=== PATIENT | male | born 1995 | race Caucasian/White ===

== ENCOUNTER 2017-04-21 18:17 | Emergency (ER) | payer OTHER ==
[~2017-04-21] VITALS: Ht 177.8 cm; Wt 63.0 kg
[~2017-04-21 18:17] MED LIST: HYDR-4225 PO
[2017-04-21 18:20] VITALS: BP 144/79
[2017-04-21] MEDS ORDERED: MIRT-1 PO (18:23)
--- NOTE | 2017-04-21 18:29 | ER Report ---
History and Physical Time Seen By MD: 18:23 Hx. of Stated Complaint: PT C/O SORE THROAT AND COLD SYMPTOMS FOR TWO DAYS. HPI/ROS CHIEF COMPLAINT: Cold symptoms and sore throat 2 days HISTORY OF PRESENT ILLNESS: 21-year-old male presents ambulatory to the ER complaining of cold symptoms for 2 days. He notes a sore throat, increased pain with swallowing. He was exposed to his classmates who has strep. He notes no headache, photophobia or stiff neck. He notes an occasional dry cough. He's had no nausea or vomiting. Patient denies high fevers to suggest influenza. He denies body aches. REVIEW OF SYSTEMS: Respiratory: No cough, no dyspnea. Cardiovascular: No chest pain, no palpitations. Gastrointestinal: No vomiting, no abdominal pain. Musculoskeletal: No back pain. Allergies: Coded Allergies: No Known Drug Allergies (Unverified , 09/10/16) Home Meds Active Scripts Amoxicillin (AMOXICILLIN) 875 Mg Tablet, 1 TAB PO Q12H for infection, #14 TAB Prov:PETR GOMES DO 04/21/17 Reported Medications Mirtazapine (REMERON) 15 Mg Tablet, 7.5 MG PO QHS 04/21/17 Discontinued Scripts Hydroxyzine Hcl (HYDROXYZINE HCL) 25 Mg Tablet, 25 MG PO QHS for Sleep, #10 TAB 0 Refills Prov:SHARAN AU MD 09/11/16 Reviewed Nurses Notes: Yes Old Medical Records Reviewed: Yes Hx Substance Use Disorder: Yes (marijauna) Hx Alcohol Use: Yes (daily recently) Constitutional Vital Sign - Last 24 Hours 04/21/17 18:20 Temp 98.1 Pulse 63 Resp 18 B/P (MAP) 144/79 Pulse Ox 96 Physical Exam Vital signs stable, afebrile, pulse ox normal. General Appearance: The patient is alert, has no immediate need for airway protection and no current signs of toxicity. HEENT: Pupils equal and round no injection. TMs normal, oropharynx moderate erythema, tonsillar hypertrophy and exudate noted Respiratory: Chest is non tender, lungs are clear to auscultation. Cardiac: regular rate and rhythm Gastrointestinal: Abdomen is soft and non tender, no masses, bowel sounds normal. No splenomegaly Musculoskeletal: Neck: Neck is supple and non tender. Tender lymphadenopathy Extremities have full range of motion and are non tender. Skin: No rashes or lesions. DIFFERENTIAL DIAGNOSIS: After history and physical exam differential diagnosis was considered for strep pharyngitis, mononucleosis, sinus infection, viral syndrome, otitis media Medical Decision Making Data Points Laboratory Hematology Test 04/21/17 00:00 Group A Streptococcus Screen Negative (NEGATIVE) Chemistry Test 04/21/17 00:00 Group A Streptococcus Screen Negative (NEGATIVE) Microbiology Microbiology Date/Time Source Procedure Growth Status 04/21/17 00:00 Throat Group A Streptococcus Screen ([facility]) - Preliminary NORMAL RESPIRATORY SCOTT PRESENT, CUL... Resulted ED Course/Re-evaluation ED Course Patient was admitted to an examination room. H&P was done. The dental diagnoses was considered. On clinical examination. Patient has exudative tonsillitis of his oropharynx. A rapid strep was performed which is negative. Cultures pending. Due to patient's strep exposure. He'll be treated with amoxicillin. He is advised ibuprofen 600 mg 3 times daily for pain relief with food. Patient advised to follow-up with primary care or [facility] if unimproved in 3-5 days. Decision to Disposition Date: Apr 21, 2017 Decision to Disposition Time: 18:44 Depart Departure Latest Vital Signs Vital Signs Date Time Temp Pulse Resp B/P (MAP) Pulse Ox O2 Delivery O2 Flow Rate FiO2 04/21/17 18:20 98.1 63 18 144/79 96 Impression: Primary Impression: Strep pharyngitis Condition: Improved Disposition: HOME OR SELF-CARE Referrals: JARETT FARR (PCP) New Scripts Amoxicillin (AMOXICILLIN) 875 Mg Tablet 1 TAB PO Q12H for infection, #14 TAB Prov: PETR GOMES DO 04/21/17 Patient Instructions: Strep Throat (ED) Additional Instructions: Take ibuprofen 200 mg 3 tablets 3 times a day with food Drink plenty of fluids Follow-up with your primary care physician if unimproved in 3-5 days PETR GOMES DO Apr 21, 2017 18:29
[2017-04-21] MEDS ORDERED: AMOX875T60 PO (18:47)
== END 2017-04-21 18:55 | disposition home or self-care (01) ==
LOC: ER 18:37
DX: J02.0 Streptococcal pharyngitis (principal)
CPT/HCPCS: 87081; 87880; 99282

== ENCOUNTER 2018-03-30 20:13 | Emergency (ER) | payer SELFPAY ==
[~2018-03-30 20:13] MED LIST changes: +AMOX875T60 PO; +MIRT-1 PO
--- NOTE | 2018-03-30 20:22 | ER Report ---
History and Physical Time Seen By MD: 20:21 HPI/ROS CHIEF COMPLAINT: Fever, body aches HISTORY OF PRESENT ILLNESS: 22-year-old male presents ambulatory to the ER complaining of being ill for 4 days. He describes fever and bodyaches. He's had a dry cough. He's noted some high fevers. He denies exposure to ill contacts. He's had no nausea or vomiting. REVIEW OF SYSTEMS: Respiratory: As above Cardiovascular: No chest pain, no palpitations. Gastrointestinal: No vomiting, no abdominal pain. Musculoskeletal: As above Allergies: Coded Allergies: No Known Drug Allergies (Unverified , 03/30/18) Home Meds Active Scripts Codeine Phosphate/Guaifenesin (Robafen AC Oral Solution) 10 Mg-100 Mg/5 Ml Liquid, 10 ML PO Q4H PRN for COUGH, #240 Prov:ELISEOPETR Vanita 03/30/18 Discontinued Reported Medications Mirtazapine (REMERON) 15 Mg Tablet, 7.5 MG PO QHS 04/21/17 Discontinued Scripts Amoxicillin (AMOXICILLIN) 875 Mg Tablet, 1 TAB PO Q12H for infection, #14 TAB Prov:PETR GOMES 04/21/17 Reviewed Nurses Notes: Yes Old Medical Records Reviewed: Yes Hx Substance Use Disorder: Yes (nayanauna) Hx Alcohol Use: Yes (daily recently) Constitutional Vital Sign - Last 24 Hours 03/30/18 03/30/18 03/30/18 03/30/18 20:20 20:30 21:00 21:05 Temp 99.6 Pulse 68 79 Resp 14 B/P (MAP) 128/81 122/73 (89) 128/81 (97) Pulse Ox 93 90 O2 Delivery Room Air 03/30/18 03/30/18 03/30/18 21:30 21:45 21:50 Pulse 78 B/P (MAP) 116/71 (86) 106/57 (73) Pulse Ox 95 Physical Exam General Appearance: The patient is alert, has no immediate need for airway protection and no current signs of toxicity. Vital signs stable, afebrile, pulse ox normal HEENT: Pupils equal and round no injection. TMs normal, oropharynx with moderate erythema, no exudate or petechiae Respiratory: Chest is non tender, lungs are clear to auscultation. No wheezing or rails Cardiac: regular rate and rhythm Gastrointestinal: Abdomen is soft and non tender, no masses, bowel sounds normal. Musculoskeletal: Neck: Neck is supple and non tender. Extremities have full range of motion and are non tender. Skin: No rashes or lesions. DIFFERENTIAL DIAGNOSIS: After history and physical exam differential diagnosis was considered for adult fever including but not limited to viral syndromes including influenza, urinary tract infection, pneumonia and sepsis. Medical Decision Making Data Points Laboratory Hematology Test 03/30/18 20:43 Influenza Virus Type A (PCR) Positive (NEGATIVE) Influenza Virus Type B (PCR) Negative (NEGATIVE) Chemistry Test 03/30/18 20:43 Influenza Virus Type A (PCR) Positive (NEGATIVE) Influenza Virus Type B (PCR) Negative (NEGATIVE) ED Course/Re-evaluation ED Course Patient was admitted to an examination room. H&P was done. The differential diagnoses was considered. A rapid influenza was sent off. Patient's positive for influenza A. He is past the window where Tamiflu will likely be of any benefit. He's advised symptomatically treatment. He is given a prescription for Phenergan with codeine cough syrup. Patient's advised ibuprofen and Tylenol alternated every 4 hours to control fever and body aches. He is advised to increase his fluid intake up. Decision to Disposition Date: Mar 30, 2018 Decision to Disposition Time: 21:35 Depart Departure Latest Vital Signs Vital Signs Date Time Temp Pulse Resp B/P (MAP) Pulse Ox O2 Delivery O2 Flow Rate FiO2 03/30/18 21:50 106/57 (73) 03/30/18 21:45 78 95 03/30/18 20:20 99.6 14 Room Air Impression: Primary Impression: Influenza A Condition: Improved Disposition: HOME OR SELF-CARE Referrals: JARETT FARRP (PCP) New Scripts Codeine Phosphate/Guaifenesin (Robafen AC Oral Solution) 10 Mg-100 Mg/5 Ml Liquid 10 ML PO Q4H PRN for COUGH, #240 Prov: PETR GOMES DO 03/30/18 Patient Instructions: Influenza (ED) Additional Instructions: Alternate ibuprofen and Tylenol every 4 hours Take ibuprofen 200 mg 3-4 tablets 3 times a day with food Take Tylenol 650 mg in between Drink plenty of fluids and rest as much as possible PETR GOMES DO Mar 30, 2018 20:22
[2018-03-30] MEDS ORDERED: CODE473L3 PO (21:37)
[2018-03-30] MEDS ORDERED: guaiFENesin/CODEINE 5 ML UDBTL PO ONE (21:40)
[2018-03-30 21:50] VITALS: BP 106/57
== END 2018-03-30 21:57 | disposition home or self-care (01) ==
LOC: ER 20:31
DX: J11.1 Influenza due to unidentified influenza virus with other respiratory manifestations (principal)
CPT/HCPCS: 87502; 99283